=== PATIENT | male | born 1995 | race Caucasian/White ===

== ENCOUNTER 2017-04-02 08:41 | Emergency (ER) | payer BC, OTHER ==
[~2017-04-02] VITALS: Ht 182.9 cm; Wt 88.0 kg
[2017-04-02 08:43] VITALS: BP 128/82
== END 2017-04-02 10:56 | disposition home or self-care (01) ==
LOC: ED 09:03
DX: S16.1XXA Strain of muscle, fascia and tendon at neck level, initial encounter (principal); S29.012A Strain of muscle and tendon of back wall of thorax, initial encounter; V89.2XXA Person injured in unspecified motor-vehicle accident, traffic, initial encounter; Y93.89 Activity, other specified; Y92.89 Other specified places as the place of occurrence of the external cause; Y99.8 Other external cause status
CPT/HCPCS: 72020; 72050; 72072; 99284